=== PATIENT | female | born 1955 | race Caucasian/White ===

== ENCOUNTER 2017-02-19 13:16 | Emergency (ER) | payer SELFPAY ==
[~2017-02-19] VITALS: Ht 167.6 cm; Wt 95.2 kg
[~2017-02-19 13:16] MED LIST: ALPR1TAB2 PO; BENA10TA2 PO
[2017-02-19 13:38] VITALS: BP 175/105
[2017-02-19] MEDS ORDERED: SODIUM CHLORIDE 0.9% 1,000 ML IV ONE (13:52)
[2017-02-19] MEDS ORDERED: SODIUM CHLORIDE FLUSH 10ML SYR IVF ONE (14:00)
[2017-02-19] MEDS ORDERED: ASPIRIN 81 MG TABLET CHEW PO ONE (14:00)
[2017-02-19 14:32] LABS: ASPARTATE AMINO TRANSFERASE 17 U/L (15-37); BLOOD UREA NITROGEN 15 mg/dL (7-18)
[2017-02-19 14:38] LABS: IS PT STATUS REG ER OR PRE ER? YES
[2017-02-20] MEDS ORDERED: LISI2.5T PO (08:32)
== END 2017-02-19 16:37 ==
LOC: ED 16:31
DX: M79.605 Pain in left leg (principal); R06.02 Shortness of breath; R20.0 Anesthesia of skin
CPT/HCPCS: 36415; 72110; 80053; 84484; 85025; 93005

== ENCOUNTER 2017-02-20 08:00 | Emergency (ER) | payer OTHER ==
[~2017-02-20] VITALS: Ht 167.6 cm; Wt 90.9 kg
[2017-02-20] MEDS ORDERED: LISI2.5T PO (08:32)
[2017-02-20] MEDS ORDERED: LISINOPRIL 20 MG TABLET ONE (08:50)
[2017-02-20] MEDS ORDERED: KETOROLAC 30 MG/1 ML ONE (08:50)
[2017-02-20] MEDS ORDERED: KETOROLAC 30 MG/1 ML IM ONE (09:00)
[2017-02-20] MEDS ORDERED: LISINOPRIL 20 MG TABLET PO ONE (09:00)
[2017-02-20 09:39] LABS: PATH.CAST-FLAG NOT PRESENT; SPERM-FLAG NOT PRESENT; SRC-FLAG NOT PRESENT; XTAL-FLAG NOT PRESENT; YLC-FLAG NOT PRESENT
[2017-02-20 10:43] VITALS: BP 196/92
== END 2017-02-20 10:48 | disposition home or self-care (01) ==
LOC: ED 08:41
DX: M51.16 Intervertebral disc disorders with radiculopathy, lumbar region (principal); M54.16 Radiculopathy, lumbar region; M54.42 Lumbago with sciatica, left side; I10 Essential (primary) hypertension; G89.29 Other chronic pain; G54.9 Nerve root and plexus disorder, unspecified
CPT/HCPCS: 81001; 87086; 96372; 99284; J1885

== ENCOUNTER 2017-04-24 14:47 | Emergency (ER) | payer OTHER ==
[~2017-04-24 14:47] MED LIST changes: +LISI2.5T PO
== END 2017-04-24 16:05 ==
LOC: ED 15:59
DX: Z53.21 Procedure and treatment not carried out due to patient leaving prior to being seen by health care provider (principal)

== ENCOUNTER 2017-11-18 15:11 | Emergency (ER) | payer BC, OTHER ==
[~2017-11-18] VITALS: Ht 167.6 cm; Wt 98.6 kg
[2017-11-18] MEDS ORDERED: KETOROLAC 30 MG/1 ML IM ONE (17:00)
[2017-11-18] MEDS ORDERED: KETOROLAC 30 MG/1 ML ONE (17:00)
[2017-11-18 17:52] VITALS: BP 152/88
== END 2017-11-18 17:55 | disposition home or self-care (01) ==
LOC: ED 17:49
DX: M51.16 Intervertebral disc disorders with radiculopathy, lumbar region (principal); G89.29 Other chronic pain; I10 Essential (primary) hypertension
CPT/HCPCS: 72110; 96372; 99284; J1885

== ENCOUNTER 2018-01-05 15:52 | Emergency (ER) | payer BC ==
[~2018-01-05] VITALS: Ht 167.6 cm; Wt 99.5 kg
[2018-01-05 15:55] VITALS: BP 196/116
[2018-01-05] MEDS ORDERED: HYDROcodone/APAP 5/325 TABLET ONE (17:12)
[2018-01-05] MEDS ORDERED: HYDROcodone/APAP 5/325 TABLET PO ONE (17:30)
== END 2018-01-05 18:53 | disposition home or self-care (01) ==
LOC: ED 18:30
DX: M54.42 Lumbago with sciatica, left side (principal); M67.40 Ganglion, unspecified site; I10 Essential (primary) hypertension; Z87.891 Personal history of nicotine dependence
CPT/HCPCS: 72110; 99284

== ENCOUNTER 2018-06-18 09:21 | Emergency (ER) | payer BC ==
[~2018-06-18] VITALS: Ht 167.6 cm; Wt 102.3 kg
[~2018-06-18 09:21] MED LIST changes: -BENA10TA2 PO; +BENA10TA4 PO
[2018-06-18] MEDS ORDERED: KETOROLAC 30 MG/1 ML IM ONE (10:30)
[2018-06-18] MEDS ORDERED: HYDROmorphone 1 MG/ML, 1ML IM ONE (10:30)
[2018-06-18] MEDS ORDERED: DEXAMETHASONE 4 MG/ML, 1ML PO ONE (10:30)
[2018-06-18 10:43] LABS: MICROSCOPIC AUTO
[2018-06-18 10:47] LABS: CULTURE INDICATED? NO
[2018-06-18] MEDS ORDERED: KETOROLAC 30 MG/1 ML ONE (10:52)
[2018-06-18] MEDS ORDERED: DEXAMETHASONE 4 MG TABLET ONE (10:52)
[2018-06-18] MEDS ORDERED: HYDROmorphone 2 MG/ML, 1ML ONE (10:52)
[2018-06-18 11:54] VITALS: BP 182/97
== END 2018-06-18 12:02 | disposition home or self-care (01) ==
LOC: ED 10:38
DX: M54.42 Lumbago with sciatica, left side (principal); I10 Essential (primary) hypertension; Z87.891 Personal history of nicotine dependence
CPT/HCPCS: 81001; 96372; 99284; J1100; J1170; J1885

== ENCOUNTER 2018-06-28 13:14 | Emergency (ER) | payer BC ==
[~2018-06-28] VITALS: Ht 167.6 cm; Wt 101.7 kg
[2018-06-28] MEDS ORDERED: HYDROmorphone 2 MG/ML, 1ML ONE (13:56)
[2018-06-28] MEDS ORDERED: KETOROLAC 30 MG/1 ML ONE (13:57)
[2018-06-28] MEDS ORDERED: DIAZEPAM 5 MG TABLET ONE (13:57)
[2018-06-28] MEDS ORDERED: DIAZEPAM 5 MG TABLET PO ONE (14:00)
[2018-06-28] MEDS ORDERED: KETOROLAC 30 MG/1 ML IM ONE (14:00)
[2018-06-28] MEDS ORDERED: HYDROmorphone 1 MG/ML, 1ML IM ONE (14:00)
[2018-06-28 14:56] VITALS: BP 140/83
== END 2018-06-28 14:58 | disposition home or self-care (01) ==
LOC: ED 14:33
DX: M25.512 Pain in left shoulder (principal); M54.40 Lumbago with sciatica, unspecified side; I10 Essential (primary) hypertension
CPT/HCPCS: 96372; 99284; J1170; J1885

== ENCOUNTER 2018-07-02 10:11 | Emergency (ER) | payer BC ==
[~2018-07-02] VITALS: Ht 167.6 cm; Wt 100.8 kg
[2018-07-02] MEDS ORDERED: AMLO5TAB7 PO (10:29)
[2018-07-02] MEDS ORDERED: FAMOTIDINE 20 MG/2 ML ONE (10:59)
[2018-07-02] MEDS ORDERED: MORPHINE SULFATE 4 MG/ML, 1ML ONE ×2 (10:59→12:34)
[2018-07-02] MEDS ORDERED: ONDANSETRON ODT 4 MG ONE (10:59)
[2018-07-02] MEDS ORDERED: ONDANSETRON 2MG/ML, 2ML IVPush ONE (11:00)
[2018-07-02] MEDS ORDERED: FAMOTIDINE 20 MG/2 ML IVP ONE (11:00)
[2018-07-02] MEDS ORDERED: SODIUM CHLORIDE 0.9% 1,000ML IVBOLUS ONE (11:00)
[2018-07-02 11:03] LABS: BASOPHILS # (AUTO) 0.05 x10^3/uL (0-0.1); BASOPHILS % (AUTO) 0 % (0-1); EOSINOPHILS # (AUTO) 0.07 x10^3/uL (0-0.4); EOSINOPHILS % (AUTO) 1 % (1-7); LYMPHOCYTES % (AUTO) 11 % (22-44); MD NO; MEAN CORPUSCULAR HEMOGLOBIN 32.1 pg (27.0-34.8); MEAN CORPUSCULAR HGB CONC 34.2 g/dL (32.4-35.8); MEAN PLATELET VOLUME 8.7 fL (7.4-10.4); MONOCYTES % (AUTO) 4 % (2-9); NEUTROPHILS # (AUTO) 13.25 x10^3/uL (1.8-6.8); NEUTROPHILS % (AUTO) 84 % (42-75); PLATELET COUNT 196 x10^3/uL (130-400); RED BLOOD COUNT 5.07 x10^6/uL (3.82-5.3); RED CELL DISTRIBUTION WIDTH 13.4 % (9.6-15.2)
[2018-07-02] MEDS: MORPHINE SULFATE 4 MG/ML, 1ML IVPush PRN ×2 (11:03→12:35)
[2018-07-02 11:10] LABS: INTERNATIONAL NORMALIZED RATIO 0.97 (0.93-1.1)
[2018-07-02 11:13] LABS: ALBUMIN 3.7 g/dL (3.4-5.0); ANION GAP 8 mmol/L (5-15); CALCIUM 8.4 mg/dL (8.5-10.1); CHLORIDE 110 mmol/L (98-107)
[2018-07-02 11:17] LABS: MICROSCOPIC INDICATED
[2018-07-02 11:17] LABS: ALANINE AMINOTRANSFERASE 22 U/L (12-78); ALKALINE PHOSPHATASE 129 U/L (45-117); BILIRUBIN,TOTAL 0.5 mg/dL (0.2-1.0); CREATININE 0.62 mg/dL (0.55-1.02); TOTAL PROTEIN 7.6 g/dL (6.4-8.2)
[2018-07-02] MEDS ORDERED: ONDANSETRON ODT 4 MG PO ONE (11:30)
[2018-07-02 11:42] LABS: CULTURE INDICATED? YES
[2018-07-02] MEDS ORDERED: SODIUM CHLORIDE FLUSH 10ML SYR IVF ONE (12:00)
[2018-07-02] MEDS ORDERED: OMNIPAQUE 350 MG/ML, 100ML BOTTLE ONE (12:18)
[2018-07-02] MEDS ORDERED: CIPROFLOXACIN/PMX 400MG/200ML 100 ML IVPB ONE (13:00)
[2018-07-02] MEDS ORDERED: METRONIDAZOLE PMX 500MG/100ML 100 ML IVPB ONE (13:00)
[2018-07-02] MEDS ORDERED: METRONIDAZOLE PMX 500MG/100ML 100 ML ONE (13:14)
[2018-07-02] MEDS ORDERED: CIPROFLOXACIN/PMX 400MG/200ML 200 ML ONE (13:14)
[2018-07-02 14:39] VITALS: BP 180/96
== END 2018-07-02 14:41 | disposition home or self-care (01) ==
LOC: ED 10:45
DX: K52.9 Noninfective gastroenteritis and colitis, unspecified (principal); I10 Essential (primary) hypertension; D72.829 Elevated white blood cell count, unspecified; Z87.891 Personal history of nicotine dependence
CPT/HCPCS: 36415; 74177; 80053; 81001; 85025; 85610; 87086; 87147; 96361; 96365; 96367; 96375; 96376; 99285; J0744; J7030; Q0162; Q9967; S0028

== ENCOUNTER 2018-07-16 11:29 | Emergency (ER) | payer BC, OTHER ==
[~2018-07-16] VITALS: Ht 167.6 cm; Wt 100.0 kg
[~2018-07-16 11:29] MED LIST changes: +AMLO5TAB7 PO
[2018-07-16] MEDS ORDERED: METHOCARBAMOL 750 MG TABLET ONE (11:51)
[2018-07-16] MEDS ORDERED: KETOROLAC 30 MG/1 ML ONE (11:51)
[2018-07-16] MEDS ORDERED: HYDROcodone/APAP 5/325 TABLET ONE (11:52)
[2018-07-16] MEDS ORDERED: KETOROLAC 30 MG/1 ML IM ONE (12:00)
[2018-07-16] MEDS ORDERED: METHOCARBAMOL 750 MG TABLET PO ONE (12:00)
[2018-07-16] MEDS ORDERED: HYDROcodone/APAP 5/325 TABLET PO ONE (12:00)
[2018-07-16 13:16] VITALS: BP 140/78
== END 2018-07-16 13:19 | disposition home or self-care (01) ==
LOC: ED 12:04
DX: S76.012A Strain of muscle, fascia and tendon of left hip, initial encounter (principal); M54.9 Dorsalgia, unspecified; M46.1 Sacroiliitis, not elsewhere classified; G89.29 Other chronic pain; I10 Essential (primary) hypertension; F41.1 Generalized anxiety disorder; X50.1XXA Overexertion from prolonged static or awkward postures, initial encounter; Y93.89 Activity, other specified; Y99.8 Other external cause status; Y92.009 Unspecified place in unspecified non-institutional (private) residence as the place of occurrence of the external cause
CPT/HCPCS: 96372; 99283; J1885

== ENCOUNTER 2019-09-08 08:55 | Emergency (ER) | payer BC ==
[~2019-09-08] VITALS: Ht 167.6 cm; Wt 97.7 kg
[~2019-09-08 08:55] MED LIST changes: +AMLO-150 PO; -AMLO5TAB7 PO; -BENA10TA4 PO; +BENA10TA6 PO; +OXYC-302 PO; +SENN1TAB27 PO
[2019-09-08] MEDS ORDERED: METHOCARBAMOL 750 MG TABLET ONE (09:17)
[2019-09-08] MEDS ORDERED: AMLODIPINE 5 MG TABLET ONE (09:17)
[2019-09-08] MEDS ORDERED: ACETAMINOPHEN 500 MG TABLET ONE (09:17)
[2019-09-08] MEDS ORDERED: KETOROLAC 60 MG/2 ML ONE (09:17)
[2019-09-08] MEDS ORDERED: KETOROLAC 30 MG/1 ML IM ONE (09:30)
[2019-09-08] MEDS ORDERED: ACETAMINOPHEN 500 MG TABLET PO ONE (09:30)
[2019-09-08] MEDS ORDERED: METHOCARBAMOL 750 MG TABLET PO ONE (09:30)
[2019-09-08] MEDS ORDERED: AMLODIPINE 5 MG TABLET PO ONE (09:30)
[2019-09-08 09:44] LABS: MICROSCOPIC AUTO
[2019-09-08 09:47] LABS: CULTURE INDICATED? YES
--- NOTE | 2019-09-08 09:47 | NUR ---
pt here for neck pain/ hussein. pt medicated per md order. ua sent. pt to x ray
--- NOTE | 2019-09-08 10:14 | NUR ---
BEDSIDE REPORT FROM MEG BLACK, PT RESTING IN [facility]. ON MONITOR. CALL LIGHT WITHIN REACH.
[2019-09-08 10:32] LABS: ANION GAP 8 mmol/L (5-15); CALCIUM 9.2 mg/dL (8.5-10.1); CHLORIDE 110 mmol/L (98-107); CREATININE 0.72 mg/dL (0.55-1.02)
[2019-09-08 11:02] VITALS: BP 192/93
--- NOTE | 2019-09-08 11:02 | NUR ---
pt resting in [facility], [facility] hussein somewhat decreased but still there 03/08. notified, pt up for recheck
== END 2019-09-08 11:24 | disposition home or self-care (01) ==
LOC: ED 10:16
DX: M50.320 Other cervical disc degeneration, mid-cervical region, unspecified level (principal); I10 Essential (primary) hypertension; G44.219 Episodic tension-type headache, not intractable
CPT/HCPCS: 36415; 72050; 80048; 81001; 87086; 93005; 96372; 99284; J1885

== ENCOUNTER 2019-11-18 13:23 | Emergency (ER) | payer BC ==
[~2019-11-18] VITALS: Ht 167.6 cm; Wt 93.0 kg
[~2019-11-18 13:23] MED LIST changes: +BENA10TA59 PO; -BENA10TA6 PO
--- NOTE | 2019-11-18 13:38 | NUR ---
PT BIB [facility] FROM WORK FOR RIGHT STERNAL CP 9/10 THAT LASTED FOR 15 MINUTES. ACCOMPANIED BY NAUSEA, DIAPHORESIS AND SOB. HX: HTN. PT REPORTS 0/10 PAIN NOW. 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 PRESENTS W/ IV IN PLACE. VS STABLE. NADN. PT CONNECTED TO ALL MONITORING AND CHANGED IN TO GOWN. RESTING ON GURNEY W/ CALL LIGHT IN REACH. DENIES FURTHER NEEDS AT THIS TIME.
--- NOTE | 2019-11-18 13:44 | NUR ---
RAD IN ROOM.
[2019-11-18 14:00] LABS: BASOPHILS # (AUTO) 0.06 x10^3/uL (0-0.1); BASOPHILS % (AUTO) 1 % (0-1); EOSINOPHILS # (AUTO) 0.14 x10^3/uL (0-0.4); EOSINOPHILS % (AUTO) 1 % (1-7); LYMPHOCYTES # (AUTO) 2.59 x10^3/uL (1-3.4); LYMPHOCYTES % (AUTO) 25 % (22-44); MD NO; MEAN CORPUSCULAR HEMOGLOBIN 32.9 pg (27.0-34.8); MEAN CORPUSCULAR HGB CONC 34.3 g/dL (32.4-35.8); MEAN CORPUSCULAR VOLUME 95.8 fL (80-100); MEAN PLATELET VOLUME 9.1 fL (7.4-10.4); MONOCYTES % (AUTO) 8 % (2-9); NEUTROPHILS # (AUTO) 6.69 x10^3/uL (1.8-6.8); NEUTROPHILS % (AUTO) 65 % (42-75); PLATELET COUNT 211 x10^3/uL (130-400); RED BLOOD COUNT 4.79 x10^6/uL (3.82-5.3); RED CELL DISTRIBUTION WIDTH 13.3 % (9.6-15.2)
[2019-11-18] MEDS ORDERED: SODIUM CHLORIDE FLUSH 10ML SYR IVF ONE (14:00)
[2019-11-18 14:06] LABS: ALANINE AMINOTRANSFERASE 17 U/L (12-78); ALBUMIN 3.7 g/dL (3.4-5.0); ANION GAP 5 mmol/L (5-15); CHLORIDE 108 mmol/L (98-107)
[2019-11-18 14:10] LABS: ALKALINE PHOSPHATASE 114 U/L (45-117); BILIRUBIN,TOTAL 0.5 mg/dL (0.2-1.0); CALCIUM 9.2 mg/dL (8.5-10.1); TOTAL PROTEIN 7.6 g/dL (6.4-8.2); TROPONIN I < 0.015 ng/mL (0.000-0.045)
[2019-11-18 16:10] LABS: TROPONIN I < 0.015 ng/mL (0.000-0.045)
--- NOTE | 2019-11-18 16:45 | NUR ---
PT DENIES CP AT THIS TIME. PT BP ELEVATED. "TAKE MY AMLODIPINE WITH DINNER" DISCUSSED ELEVATED BP WITH DR FREDERICK. OK TO DC AND TAKE HOME MEDS DIRECTED. PT PROVIDED WITH LIST OF [facility] PROVID[facility]. REVIEWED DC INSTRUCTIONS WITH PT. UNDERSTANDING VERBALIZED. PT LEFT AMB, GAIT STEADY.
[2019-11-18 16:54] VITALS: BP 199/87
== END 2019-11-18 16:57 | disposition home or self-care (01) ==
LOC: ED 16:45
DX: R07.2 Precordial pain (principal); I10 Essential (primary) hypertension; R06.02 Shortness of breath
CPT/HCPCS: 36415; 71045; 80053; 84484; 85025; 85379; 93005; 99284; 99285

== ENCOUNTER 2020-07-02 15:12 | Emergency (ER) | payer BC, MEDICARE ==
[~2020-07-02] VITALS: Ht 167.6 cm; Wt 103.3 kg
[2020-07-02 15:14] VITALS: BP 210/121
[2020-07-02] MEDS ORDERED: HYDROcodone/APAP 5/325 TABLET PO PRN (15:30)
[2020-07-02] MEDS ORDERED: HYDROcodone/APAP 5/325 TABLET ONE (15:38)
== END 2020-07-02 16:35 | disposition home or self-care (01) ==
LOC: ED 15:53
DX: S90.122A Contusion of left lesser toe(s) without damage to nail, initial encounter (principal); I10 Essential (primary) hypertension; G89.29 Other chronic pain; Z87.891 Personal history of nicotine dependence; W22.8XXA Striking against or struck by other objects, initial encounter; Y93.89 Activity, other specified; Y92.009 Unspecified place in unspecified non-institutional (private) residence as the place of occurrence of the external cause; Y99.8 Other external cause status
CPT/HCPCS: 99283

== ENCOUNTER 2020-11-10 07:51 | Outpatient (CLI) | payer MEDICARE ==
[~2020-11-10 07:51] MED LIST changes: -OXYC-302 PO; +OXYC1TAB14 PO
== END 2020-11-10 23:59 | disposition home or self-care (01) ==
LOC: CFH 07:51
PROVIDERS: ATTEND Family Medicine
DX: Z12.31 Encounter for screening mammogram for malignant neoplasm of breast (principal); M79.631 Pain in right forearm; M85.9 Disorder of bone density and structure, unspecified
CPT/HCPCS: 77063; 77067; 77080

== ENCOUNTER → 2020-11-29 | Outpatient (CLI) | payer MEDICARE ==
[~2020-11-29] MED LIST changes: +OMNIPAQUE 350 MG/ML, 150 ML BOTTLE ONE
== END | disposition home or self-care (01) ==
LOC: RAD 10:33
PROVIDERS: ATTEND Family Medicine
DX: N28.1 Cyst of kidney, acquired (principal); R31.0 Gross hematuria; R31.9 Hematuria, unspecified; Z87.891 Personal history of nicotine dependence
CPT/HCPCS: 74178; Q9967

== ENCOUNTER 2021-03-25 14:51 | Emergency (ER) | payer MEDICARE ==
[~2021-03-25] VITALS: Ht 167.6 cm; Wt 107.1 kg
[~2021-03-25 14:51] MED LIST changes: -LISI2.5T PO; +LISI2.5T12 PO; -OMNIPAQUE 350 MG/ML, 150 ML BOTTLE ONE; +OXYC1TAB12 PO; -OXYC1TAB14 PO
--- NOTE | 2021-03-25 15:13 | NUR ---
PT AMBULATORY TO ROOM FROM TRIAGE, PT CHANGED INTO GOWN. ALL MONITORS IN PLACE. CALL LIGHT WITHIN REACH. PT C/O LEG NUMBNESS IN LEGS, LEFT WORSE & HEMATOMA ON BILATERAL ANKLE
[2021-03-25] MEDS ORDERED: ALBUTEROL/IPRATROPIUM 2.5MG/0.5MG, 3 ML ONE (15:51)
[2021-03-25] MEDS ORDERED: SODIUM CHLORIDE FLUSH 10ML SYR IVF ONE (16:00)
[2021-03-25] MEDS ORDERED: LOSARTAN 50MG TABLET PO ONE (16:00)
[2021-03-25] MEDS ORDERED: SODIUM CHLORIDE 0.9% 1,000ML IVBOLUS ONE (16:00)
[2021-03-25] MEDS ORDERED: ALBUTEROL/IPRATROPIUM 2.5MG/0.5MG, 3 ML NPPB ONE (16:00)
--- NOTE | 2021-03-25 16:12 | NUR ---
PT TOLERATED BREATHING TX WELL. NADN/VSS. NO NEEDS AT THIS TIME
[2021-03-25 16:25] LABS: BASOPHILS % (AUTO) 1 % (0-1); EOSINOPHILS % (AUTO) 1 % (1-7); LYMPHOCYTES % (AUTO) 16 % (22-44); MEAN CORPUSCULAR HEMOGLOBIN 33.3 pg (27.0-34.8); MEAN CORPUSCULAR HGB CONC 34.7 g/dL (32.4-35.8); MEAN PLATELET VOLUME 9.2 fL (7.4-10.4); MONOCYTES % (AUTO) 8 % (2-9); NEUTROPHILS % (AUTO) 74 % (42-75); PLATELET COUNT 212 x10^3/uL (130-400); RED BLOOD COUNT 4.92 x10^6/uL (3.82-5.3); RED CELL DISTRIBUTION WIDTH 13.4 % (9.6-15.2)
[2021-03-25 16:27] LABS: ALBUMIN 3.6 g/dL (3.4-5.0); ANION GAP 5 mmol/L (5-15); CHLORIDE 110 mmol/L (98-107); CREATININE 0.76 mg/dL (0.55-1.02)
[2021-03-25 16:30] VITALS: BP 198/101
--- NOTE | 2021-03-25 16:45 | NUR ---
PT AMBULATORY TO BR WITH UPRIGHT STEADY GAIT
--- NOTE | 2021-03-25 17:37 | NUR ---
Patient/Caregiver given discharge instructions and RX, they have confirmed that they understand the instructions. Patient ambulatory with steady gait.
== END 2021-03-25 17:38 | disposition home or self-care (01) ==
LOC: ED 17:30
DX: J45.41 Moderate persistent asthma with (acute) exacerbation (principal); M62.831 Muscle spasm of calf; I10 Essential (primary) hypertension; J44.9 Chronic obstructive pulmonary disease, unspecified; Z87.891 Personal history of nicotine dependence
CPT/HCPCS: 36415; 71045; 80048; 82040; 85025; 93005; 94640; 96360; 99285; J7030; J7512